=== PATIENT | female | born 1945 | race Caucasian/White ===

== ENCOUNTER 2017-03-19 11:55 | Emergency (ER) | payer SELFPAY ==
--- NOTE | 2017-03-27 18:10 | ER ---
ADMIT: 03/19/2017 RM/LOC: [address] [facility] MR#: [id number] [address] [id number] [address] [address] [place] [address] Emergency Room Report SEX: F AGE: 71 : 1945 DATE: 03/19/2017 ADDENDUM: A 71-year-old female, comes in with back spasms. She does have a history of some chronic back pain. Bent over in the shower today and had significant pain and actually had to come in by EMS. We had quite a bit of difficulty getting the patient's symptoms of back spasms under control in the ER. She received Valium en route. I gave her Valium here. She also received Toradol IV and then finally Jay and prednisone p.o. She had a normal urinalysis as she said she might have had a little bit of frequency, but no other neurologic symptoms. As we had difficulty getting her refractory back spasm under control, we had actually come to the conclusion we might have to admit her, but we find it did get relief and she was able to be discharged home with a prescription for prednisone, Valium, and Zofran to follow up with her regular physician, or if she is still in town, she can follow up with [facility]. Marcio Cummings MD/ geremias JOB #: [id number] CC: Lobito Martines MD, Attending Physician Lobito Martines MD, Family Physician
== END 2017-03-19 18:05 | disposition home or self-care (01) ==
LOC: ER 11:55 → 5MS 15:15
DX: M62.830 Muscle spasm of back (principal); M54.31 Sciatica, right side; Z88.0 Allergy status to penicillin; Z79.899 Other long term (current) drug therapy; Z98.890 Other specified postprocedural states